=== PATIENT | male | born 1960 | race Two or more races ===

== ENCOUNTER 2020-11-05 18:52 | Emergency (ER) | payer OTHER ==
[2020-11-05 19:39] VITALS: BP 150/74; PULSE 79; TEMP 98; BMI 25.5
[2020-11-05] MEDS ORDERED: LIDOCAINE 5% TOPICAL PATCH TP ONE (21:19)
[2020-11-05] MEDS ORDERED: ACETAMINOPHEN 500 MG TABLET (FP) PO ONE (21:19)
[2020-11-05] MEDS ORDERED: LIDOCAINE 5% TOPICAL PATCH ONE (21:22)
[2020-11-05] MEDS ORDERED: ACETAMINOPHEN 325 MG TABLET (FP) ONE (21:22)
[2020-11-05] MEDS ORDERED: DIPHTH,PERTUSS(ACELL),TET 0.5 ML DISP.SYRIN IM ONE ×2 (21:24→21:32)
[2020-11-05] MEDS ORDERED: LIDOCAINE PATCH REMOVAL MC SCH (22:00)
[2020-11-06] MEDS ORDERED: TETRACAINE 0.5% OPHTH SOLN 2 ML BOTTLE ONE (01:20)
[2020-11-06] MEDS ORDERED: FLUORESCEIN NA 1 EA STRIP ONE (01:20)
== END 2020-11-05 23:39 | disposition home or self-care (01) ==
LOC: JER 18:52
PROC: 0HQ0XZZ Repair Scalp Skin, External Approach (ICD-10-PCS; principal; 2020-11-05)
PROC: 3E0234Z Introduction of Serum, Toxoid and Vaccine into Muscle, Percutaneous Approach (ICD-10-PCS; 2020-11-05)
DX: S01.01XA Laceration without foreign body of scalp, initial encounter (principal); W01.198A Fall on same level from slipping, tripping and stumbling with subsequent striking against other object, initial encounter; X50.0XXA Overexertion from strenuous movement or load, initial encounter
CPT/HCPCS: 70450-TC; 72125-TC; 90715; 99284-25

== ENCOUNTER 2020-11-15 12:50 | Emergency (ER) | payer OTHER ==
[2020-11-15 13:20] VITALS: BP 122/79; PULSE 83; TEMP 98; BMI 24.9
== END 2020-11-15 14:00 | disposition home or self-care (01) ==
LOC: JER 12:50 → JERFT 12:50
DX: Z48.02 Encounter for removal of sutures (principal)
CPT/HCPCS: 99281-25

== ENCOUNTER 2022-05-23 03:03 | Emergency (ER) | payer BC, OTHER ==
[2022-05-23 03:26] VITALS: BP 163/98; PULSE 74; RESP 20; TEMP 97.7; BMI 25.7
[2022-05-23] MEDS ORDERED: ACETAMINOPHEN 325 MG TABLET (FP) PO ONE (06:15)
[2022-05-23] MEDS ORDERED: AMOX TR/POT CLAV 875MG/125MG TABLETS (FP) PO ONE (06:15)
[2022-05-23] MEDS ORDERED: AMOX TR/POT CLAV 875MG/125MG TABLETS (FP) ONE (06:28)
[2022-05-23] MEDS ORDERED: ACETAMINOPHEN 500 MG TABLET (FP) ONE (06:29)
== END 2022-05-23 06:36 | disposition home or self-care (01) ==
LOC: JER 03:03
PROC: 0HQGXZZ Repair Left Hand Skin, External Approach (ICD-10-PCS; principal; 2022-05-23)
DX: S61.211A Laceration without foreign body of left index finger without damage to nail, initial encounter (principal); W31.2XXA Contact with powered woodworking and forming machines, initial encounter
CPT/HCPCS: 73140-TC-LT-FY; 99283-25